=== PATIENT | male | born 2000 | race Caucasian/White ===

== ENCOUNTER 2022-03-06 07:28 | Day surgery (SDC) | payer OTHER ==
[~2022-03-06] VITALS: Ht 185.4 cm; Wt 92.3 kg
[2022-03-06 07:45] VITALS: BP 132/102; PULSE 83; TEMP 97.8
[2022-03-06 09:25] VITALS: BP 137/82; PULSE 95; TEMP 96.9
[2022-03-06 09:40] VITALS: BP 128/95; PULSE 89
--- NOTE | 2022-03-06 09:53 | NUR ---
0925 - PT arrives from procedure drowsy but oriented. PT settled by Rama ROSS. Verbal room report then obtained. PT oriented to room and call marcum, within reach. Monitors applied and vitals obtained. PT denies pain and nausea. NO vomiting. PT provided snack and drink. Visitors remain present. 0940 - Vitals obtained. is speaking w/ PT. Call marcum remains within reach. PT has finished snack and drink; continues to deny nausea and pain. PT exressed desire to be discharged.
[2022-03-06 09:55] VITALS: BP 132/94; PULSE 91
[2022-03-06 10:08] VITALS: BP 107/83; PULSE 94
--- NOTE | 2022-03-06 10:08 | NUR ---
0955 - Vitals obtained. IV discontinued. Catheter tip intact and pressure bandage applied. NO redness or swelling noted. DC instructions and educational material reveiwed with the PT, who verbalized understanding and signed the related paperwork. Questions answered to PT satisfaction. PT refused RN assistance changing into personal clothes; call marcum remains within reach if needed. RN provided RX location; [facility].
--- NOTE | 2022-03-06 10:25 | NUR ---
1015 - PT dismissed from endo via wheelchair by Amrita ROSS to PT entrence. PT has DC packet and personal belongings; PT transferred into the care of Yvonne, who is driving private car.
== END 2022-03-06 10:15 | disposition home or self-care (01) ==
LOC: SDCO 07:28
DX: K21.01 Gastro-esophageal reflux disease with esophagitis, with bleeding (principal); K44.9 Diaphragmatic hernia without obstruction or gangrene; R10.31 Right lower quadrant pain; K64.0 First degree hemorrhoids; Z83.79 Family history of other diseases of the digestive system; I10 Essential (primary) hypertension; Z28.310 Unvaccinated for COVID-19; Z28.39 Other underimmunization status
CPT/HCPCS: J2704; J7030